=== PATIENT | female | born 2000 | race Caucasian/White ===

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

== ENCOUNTER 2024-01-18 14:35 | Emergency (ER) | payer SELFPAY ==
[2024-01-18 14:38] VITALS: BP 131/85; PULSE 93; TEMP 36.8; O2SAT 97
--- NOTE | 2024-01-18 15:34 | ED.GENADUL_ITS ---
Discharge Plan Disposition Patient Disposition: Home Condition: Good Discharge Details Chief Complaint: Orthopedic Clinical Impression: Pain of right fibula Primary Care Provider: Unknown,Unknown ED Provider: Bon Graham Home Meds and New Rx's Prescriptions: No Action norgestimate-ethinyl estradiol [Sprintec (28)] 0.25-35 mg-mcg tablet 1 tab PO DAILY Qty: 84 3RF Discharge Instructions Additional Instructions: At this time thankfully the x-ray does not show any evidence of fracture. As we discussed together I suspect that a component of your symptoms is likely secon steffany to the old injury and the disruption that it causes to the joint and the surrounding ligaments. In the meantime while you are having the pain please use the crutches to bear less weight on the foot for the next 2 weeks. If the pain is notably improving with the crutches and the walking boot you can gradually transition to just utilizing the walking boot. Once the pain is notably improved with a walking boot you can transition back to your shoes with potentially an [id number]-ydlqqli lace up ankle support device. Please take Tylenol and Motrin as needed for pain. You can also apply Voltaren gel/diclofenac gel which is azkn-zuq-[id number] to the affected area. This can also help improve the pain. We have placed a referral with av specialist. Keep an open mind for future treatment options, which will likely start with helpful physical therapy, and potential supportive devices. If you notice any worsening of your symptoms, or any new symptoms such as vomiting, diarrhea, fever, chills, shortness of breath, chest pain, numbness, weakness, or fainting , please return immediately to the emergency department for reevaluation. Please follow up with your primary care provider as soon as possible for reassessment and reevaluation. As always, it was a pleasure participating in your medical care today. Referrals: Dakota Armenta MD [ [facility] STAFF PHYSICIAN] - Ryan Clements MD [ [facility] STAFF PHYSICIAN] - [facility] General Date/Time Provider Initiated Documentation: 01/18/24 14:42 . [facility] Narrative: This is a pleasant 23-year-old female with a past medical history of PTSD, anxiety, depression, and a previous distal fibula injury for the right fibula on February 21, 2023, who presents today for right distal fibular pain. Patient states that she severely injured the distal fibula a year ago, and did not get surgery however there were discussions about surgery with her provider in [place] at that time. Eventually the pain diminished, and it got to the point where she could feel it, but it did not give regular pain. Over the last 2 months she has developed a worsening pain though. She has recently started a job at a bank, and the increased amount of weightbearing and movement has brought about significant sharp pains. The describes the pain is worse with weightbearing, but not at rest. She has been taking Advil to help improve the pain. She states that the pain is present at the lateral ankle, and has travele d slightly proximally over the last few weeks. She denies any new numbness and tingling. No other complaints at this time. Related Data Home Medications Medication Instructions Recorded Confirmed norgestimate 0.25 mg-ethinyl 1 tab PO DAILY #84 tabs 08/26/18 08/26/18 estradiol 35 mcg tablet (Sprintec (28)) Previous Rx's Medication Instructions Recorded norgestimate 0.25 mg-ethinyl 1 tab PO DAILY #84 tabs 08/26/18 estradiol 35 mcg tablet (Sprintec (28)) Allergies Allergy/AdvReac Type Severity Reaction Status Date / Time No Known Allergies Allergy Verified 08/26/18 10:23 General Stated Complaint: Orthopedic DIONE: 4 Review of Systems All systems reviewed & are unremarkable except as noted in HPI and below Exam Narrative Exam Narrative: 1.Const: Well-nourished, Well-developed, appearing stated age 2.Eyes: PERRL, no conjunctival injection, and symmetrical lids. 3.ENT: Atraumatic external nose and ears. Moist MM. Neck: Symmetric, trachea midline, No thyromegaly. 4.CVS: +S1/S2, No murmurs or gallops. Peripheral pulses 2+ and equal in all extremities. Brisk capillary refill in all extremities. 5.RESP: Unlabored respiratory effort. Clear to auscultation bilaterally. No wheezes rales or rhonchi 6.GI: Soft, Nontender/Nondistended, No hepatosplenomegaly. No guarding or rebound. 7.MSK: Normocephalic. Right lower extremity: Patient demonstrates very minimal tenderness at the distal fibula, no pain with palpation throughout the ankle, the mid or proximal fibula. No tibial pain. Brisk capillary refill is present, dorsalis pedis and posterior tibial pulse +2 bilaterally. Patient has moderate pain with weightbearing pressure applied to the ankle, moderate pain with inversion and eversion of the ankle. Minimal pain with flexion and extension at the ankle. 8.Skin: Warm, Dry. No rashes or lesions. 9.Neuro: rfid engineer II-XII grossly intact. Sensation grossly intact, no focal neurologic deficits. 10.Psych: (AAO) x3. Appropriate mood and affect Course Vital Signs Vital signs: Vital Signs Temperature 36.8 C 01/18/24 14:38 Pulse 93 H 01/18/24 14:38 Blood Pressure 131/85 01/18/24 14:38 Pulse Oximetry 97 01/18/24 14:38 Temperature 36.8 C 01/18/24 14:38 Temperature Source Temporal Artery Scan 01/18/24 14:38 Pulse 93 H 01/18/24 14:38 Respiratory Effort Normal 01/18/24 14:53 Blood Pressure 131/85 01/18/24 14:38 Blood Pressure Position Sitting 01/18/24 14:38 Pulse Oximetry 97 01/18/24 14:38 Oxygen Delivery Method Room Air 01/18/24 14:38 Oxygen Flow Rate 0 01/18/24 14:38 Medical Decision Making This is a pleasant 23-year-old female with a past medical history of PTSD, anxiety, depression, and a previous distal fibula injury for the right fibula on February 21, 2023, who presents today for right distal fibular pain. Patient states that she severely injured the distal fibula a year ago, and did not get surgery however there were discussions about surgery with her provider in [place] at that time. Eventually the pain diminished, and it got to the point where she could feel it, but it did not give regular pain. Over the last 2 months she has developed a worsening pain though. She has recently started a job at a bank, and the increased amount of weightbearing and movement has brought about significant sharp pains. The describes the pain is worse with weightbearing, but not at rest. She has been taking Advil to help improve the pain. She states that the pain is present at the lateral ankle, and has traveled slightly proximally over the last few weeks. She denies any new numbness and tingling. No other complaints at this time. Exam demonstrates a pleasant female, she is notably tearful though, and attributes that to her anxiety and PTSD. Palpation of the leg in general elicits an uncomfortable feeling which does elicit tears and crying, however she states that this is not actually pain, rather than just a sensation that she does not appreciate. However once we move past this, we are able to dif ferentiate between that and pain. Patient has minimal pain on palpation of the ankle and the distal fibula, however inversion and eversion and weightbearing elicits significant pain in that area that is reproducible on exam. No significant pitting edema. Normal neurovascular exam otherwise. I suspect there is a component of chronic arthritis from her previous injury, potential chronic ligamentous disruption, with also the potential for osseous degradation from the significance of the previous fracture from what she explains. We will get an x-ray to look for necrosis to bone, no fracture, will give a walking boot and crutches. Will monitor closely and reassess. 4:32 PM X-ray negative for acute process. I spent 30 minutes discussing the findings with the patient's, including the most appropriate next steps, which would likely include the continued use of crutches in the walking boot for the time being, as well as the potential need for NSAID therapy. We will place an orthopedic referral. I did also discuss with the patient that immediate surgery is probably not the best next option, and that the likely next best steps are physical therapy, potential orthotic devices, and continued close maintenance. Patient will follow closely with orthopedics. Discussed red flags which to return I have extensively reviewed the treatment plan and discharge instructions with the patient. I have addressed all patient concerns at this time. The patient was made aware of what symptoms to monitor for that would warrant a return to the emergency department. Discussed the plan with the patient, they demonstrate verbal understanding and agreement with our assessment and plan at this time. The documentation in this chart was dictated using [employer] dictation software. Please excuse any dictation errors. FINDINGS: BONES: There is a healed nondisplaced fracture of the distal right fibula. No new fracture is seen. No bony destructive lesion is seen. Visualized portion of knee and ankle joints are unremarkable. SOFT TISSUE: Normal. IMPRESSION: No new fracture or dislocation. Quality:SDOH Health Related Social Needs: No Data to Display PFSH All Active Problems (Updated 01/18/24 @ 16:31 by Bon Graham DO) Pain of right fibula (Acute) Adjustment disorder (Acute 09/17/12) 09/17/12--related to puberty changes- resolved and 01/28/13- mostly related to home situation and issues with mother Surgical History Tonsillectomy Family History Father Age: 45 No problems noted. Brother Age: 25 No problems noted. Brother Age: 15 No problems noted. Mother Age: 45 Substance abuse Social History Smoking/Tobacco Use Status: Never Smoking risk assessment performed?: Yes Alcohol Intake: never Female Reproductive History Menstrual control method: pills History History 0 Para Hx # Term Pregnancies Multiple births Hx # Pregnancies Ectopic pregnancies AB induced Hx Number of Living Children AB spontaneous
--- NOTE | 2024-01-18 15:35 | DI.RAD_ITS ---
Exam(s) XR TIB/FIB RT EXAM: XR TIB/FIB RT CLINICAL HISTORY: recent distal fib fx, new pain at distal fib. TECHNIQUE: 2D digital imaging was performed of the right tibia and fibula. Two images were obtained. AP and lateral views were obtained. COMPARISON: No exams were available for comparison FINDINGS: BONES: There is a healed nondisplaced fracture of the distal right fibula. No new fracture is seen. No bony destructive lesion is seen. Visualized portion of knee and ankle joints are unremarkable. SOFT TISSUE: Normal. IMPRESSION: No new fracture or dislocation. DATA REPOSITORY: RADIATION DOSE DELIVERED:
== END 2024-01-18 16:45 | disposition home or self-care (01) ==
PROVIDERS: Emergency Provider Student in an Organized Health Care Education/Training Program
DX: M89.8X6 Other specified disorders of bone, lower leg; S82.831D Other fracture of upper and lower end of right fibula, subsequent encounter for closed fracture with routine healing
CPT/HCPCS: 99283; 73590

== ENCOUNTER 2025-01-06 14:50 | Emergency (ER) | payer SELFPAY ==
[2025-01-06 15:01] VITALS: BP 109/76; PULSE 66; RESP 16; TEMP 36.5; O2SAT 98
--- NOTE | 2025-01-06 15:08 | W.ED.GENAD ---
Discharge Plan Disposition Patient Disposition: Home Discharge Details Clinical Impression: Tendonitis Primary Care Provider: None,None ED Provider: Feli Robles Home Meds and New Rx's Prescriptions: No Action norgestimate-ethinyl estradiol [Sprintec (28)] 0.25-35 mg-mcg tablet 1 tab PO DAILY Qty: 84 3RF buspirone 15 mg tablet 15 mg PO TID escitalopram oxalate 20 mg tablet 20 mg PO DAILY Discharge Instructions Instructions: Tendinopathy (DC) Additional Instructions: A referral has been placed for you to establish care with primary care. Care management will call you to set up your first appointment. Please use the sling as needed for comfort. Ice for 15 to 20 minutes at a time will help with swelling. I recommend ibuprofen 600 mg every 8 hours for discomfort. Return to emergency care if you develop fevers over 100.4, redness and warmth to the to the elbow, numbness to the arm, Stand Alone Forms: Work Release Referrals: Care Management [Provider Group] [facility] General Date/Time Provider Initiated Documentation: 01/06/25 15:03. HPI Narrative: Cristela is a 24 year old female who presents to the emergency department today for evaluation of swelling to R inner forearm. She reports that she just noticed it this morning, it is tender to palpation. Causes discomfort if she walks with arms fully extended. No distal numbness/tingling. She does feel like her discomfort moves up and down the arm. No known trauma, associated fever/chills, general malaise, or associated rash/lesions. She is right-handed, types a lot for work. No significant past medical history. Physical exam reassuring. Mild swelling noted to ulnar aspect of right forearm. No associated redness, joint swelling, or rashes. Full range of motion, including supination/pronation, flexion and extension. Distal pulses intact. No color change to the extremity. Radial tenderness with palpation, especially over proximal ulna. D/dx includes but is not limited to: Lipoma, tendinitis. Abscess or cellulitis unlikely. I independently interpreted the following tests: POCUS performed with Dr. Barreto. Tendinitis noted, otherwise unremarkable. While in the emergency department, Cristela received ibuprofen for discomfort, as well as a sling. Reviewed discharge instructions for tendinitis with patient, including symptomatic management and red flags indicating need for return to emergency care. She does not currently have a PCP, referral was placed to care management to establish care. Related Data Home Medications ?Medication ?Instructions ?Recorded ?Confirmed norgestimate 0.25 mg-ethinyl 1 tab PO DAILY #84 tabs 08/26/18 01/06/25 estradiol 35 mcg tablet (Sprintec (28)) buspirone 15 mg tablet 15 mg PO TID 01/06/25 01/06/25 escitalopram oxalate 20 mg tablet 20 mg PO DAILY 01/06/25 01/06/25 Previous Rx's ?Medication ?Instructions ?Recorded norgestimate 0.25 mg-ethinyl 1 tab PO DAILY #84 tabs 08/26/18 estradiol 35 mcg tablet (Sprintec (28)) Allergies Allergy/AdvReac Type Severity Reaction Status Date / Time No Known Allergies Allergy Verified 01/06/25 15:05 General Stated Complaint: Orthopedic DIONE: 4 Review of Systems Narrative: See HPI Exam Const General: cooperative, healthy appearing, comfortable, no acute distress, well developed and anxious Nutritional Appearance: average body habitus Orientation: alert Resp Effort & Inspection: normal respiratory effort and able to speak in complete sentences Skin General skin exam: no rashes or lesions noted Trauma: no lacerations or abrasions Neuro General: patient alert, patient oriented x3, tone normal, moves all extremities and no focal motor deficits Cognition: normal cognition Sensory Exam: no sensory deficits noted Extrem Right upper extremity: no joint enlargement and elbow/forearm Details: tenderness, swelling (mild swelling along proximal ulnar aspect of forearm), normal ROM and distal pulses intact; no unusual warmth, no abrasions, no lacerations, no ecchymosis, no crepitus, no foreign bodies, no penetrating wound and no deformity; no edema Course Vital Signs Vital signs: Vital Signs Temperature 36.5 C 01/06/25 15:01 Pulse 66 01/06/25 15:01 Respiratory Rate 16 01/06/25 15:01 Blood Pressure 109/76 01/06/25 15:01 Pulse Oximetry 98 01/06/25 15:01 Temperature 36.5 C 01/06/25 15:01 Pulse 66 01/06/25 15:01 Respiratory Rate 16 01/06/25 15:01 Blood Pressure 109/76 01/06/25 15:01 Pulse Oximetry 98 02/25/25 15:01 Procedure Abscess Drainage Provider that performed the procedure: Selwyn Barreto Medical Decision Making Quality:SDOH Health Related Social Needs: No Data to Display PFSH All Active Problems (Updated 01/06/25 @ 16:10 by Feli Hunter) Tendonitis (Acute) Adjustment disorder (Acute 09/17/12) 09/17/12--related to puberty changes- resolved and 01/28/13- mostly related to home situation and issues with mother Surgical History Tonsillectomy Family History Father Age: 46 No problems noted. Brother Age: 26 No problems noted. Brother Age: 16 No problems noted. Mother Age: 46 Substance abuse Social History Smoking/Tobacco Use Status: Never Smoking risk assessment performed?: Yes Alcohol Intake: current Alcohol Intake frequency: holidays/special occasions only Drug use: Daily Substance use type: marijuana Do you feel safe at home: Yes Do you feel safe in your relationship?: Yes Female Reproductive History Menstrual control method: pills History History 0 Para Hx # Term Pregnancies Multiple births Hx # Pregnancies Ectopic pregnancies AB induced Hx Number of Living Children AB spontaneous POCUS Exam (ED) Limited Soft Tissue Exam DATE OF EXAM: 01/06/25 TIME OF EXAM: 03:55 PROVIDER THAT PERFORMED THE STUDY: Selwyn Barreto IS THIS A REPEAT EXAM DURING THIS ENCOUNTER: No LOCATION OF EXAM: Upper extremity/right REASON FOR EXAM: Pain and Swelling VISUALIZED STRUCTURES: Fascia, Muscle, Skin, Subcutaneous tissue and Other (bone) structure: tendon PERTINENT FINDINGS/IMPRESSION: No apparent abnormalities and Other (tendonitis) impression: tendonitis . Exam Complete Pocus Exam Limited Soft Tissue Exam DATE OF EXAM: 01/06/25 TIME OF EXAM: 03:55 PROVIDER THAT PERFORMED THE STUDY: Selwyn Barreto IS THIS A REPEAT EXAM DURING THIS ENCOUNTER: No LOCATION OF EXAM: Upper extremity/right REASON FOR EXAM: Pain and Swelling VISUALIZED STRUCTURES: Fascia, Muscle, Skin, Subcutaneous tissue and Other (bone) structure: tendon PERTINENT FINDINGS/
[2025-01-06 16:20] VITALS: BP 120/82; PULSE 80; O2SAT 98
[2025-01-06] MEDS: Ibuprofen 600 MG TAB PO (16:20)
== END 2025-01-06 16:23 | disposition home or self-care (01) ==
PROVIDERS: Emergency Provider Nurse Practitioner Family
DX: M79.631 Pain in right forearm (principal); M77.9 Enthesopathy, unspecified
CPT/HCPCS: 76882; 99284; 99283

== ENCOUNTER 2025-06-16 10:14 | Emergency (ER) | payer OTHER, SELFPAY ==
[2025-06-16 10:31] VITALS: BP 93/60; PULSE 83; RESP 16; TEMP 36.8; O2SAT 96
--- NOTE | 2025-06-16 10:37 | W.ED.GENAD ---
Discharge Plan Disposition Patient Disposition: Home Condition: Stable Discharge Details Clinical Impression: Cat scratch of face Primary Care Provider: Crissy Kaye ED Provider: Earlene Talbot Home Meds and New Rx's Prescriptions: No Action norgestimate-ethinyl estradiol [Sprintec (28)] 0.25-35 mg-mcg tablet 1 tab PO DAILY Qty: 84 3RF buspirone 15 mg tablet 15 mg PO TID escitalopram oxalate 20 mg tablet 20 mg PO DAILY Discharge Instructions Instructions: Abrasions ED Discharge Data Discharge Physician: Earlene Talbot [facility] General Date/Time Provider Initiated Documentation: 06/16/25 10:17. HPI Narrative: 24-year-old female presents for evaluation after cat scratch. She state her cat scratched her left upper eyelid this morning. She is worried that she may need a tetanus shot. There is no significant swelling or warmth. Is a very superficial abrasion to her right upper eyelid. Related Data Home Medications ?Medication ?Instructions ?Recorded ?Confirmed norgestimate 0.25 mg-ethinyl 1 tab PO DAILY #84 tabs 08/26/18 06/16/25 estradiol 0.035 mg tablet (Sprintec (28)) buspirone 15 mg tablet 15 mg PO TID 01/06/25 06/16/25 escitalopram oxalate 20 mg tablet 20 mg PO DAILY 01/06/25 06/16/25 Previous Rx's ?Medication ?Instructions ?Recorded norgestimate 0.25 mg-ethinyl 1 tab PO DAILY #84 tabs 08/26/18 estradiol 0.035 mg tablet (Sprintec (28)) Allergies Allergy/AdvReac Type Severity Reaction Status Date / Time cat dander Allergy Mild Hives Verified 06/16/25 10:37 shellfish derived AdvReac Severe Anaphylaxis Verified 06/16/25 10:37 General Stated Complaint: Laceration DIONE: 4 Review of Systems Narrative: Remainder of review of systems otherwise negative except for as noted in the HPI x 5. Exam Narrative Exam Narrative: General: non-toxic, no respiratory distress, comfortable HEENT: normocephalic, atraumatic, small abrasion to right upper eyelid without any surrounding erythema or warmth, otherwise lids and lashes normal, PERRL, EOMI, anicteric sclera, no conjunctival injection, moist oral mucosa Musculoskeletal: full range of motion of arms and legs, no tenderness to palpation. no clubbing, cyanosis, or edema Neurologic: appropriate for age, strength normal Psych: alert and oriented Skin: As above, otherwise no petechiae, no lesions, warm and dry Course Vital Signs Vital signs: Vital Signs Temperature 36.8 C 06/16/25 10:31 Pulse 83 06/16/25 10:31 Respiratory Rate 16 06/16/25 10:31 Blood Pressure 93/60 L 06/16/25 10:31 Pulse Oximetry 96 06/16/25 10:31 Temperature 36.8 C 06/16/25 10:31 Temperature Source Oral 06/16/25 10:31 Pulse 83 06/16/25 10:31 Respiratory Rate 16 06/16/25 10:31 Blood Pressure 93/60 L 06/16/25 10:31 Pulse Oximetry 96 06/16/25 10:31 Oxygen Delivery Method Room Air 06/16/25 10:31 Oxygen Flow Rate 0 06/16/25 10:31 Medical Decision Making 24-year-old female presents for evaluation of cat scratch to right upper eyelid. Patient has very superficial abrasion. We discussed wound care. Her tetanus is already up-to-date. Do not feel that she requires further medication or intervention at this time. She does understand indications to return. PFSH All Active Problems Cat scratch of face (Acute) Adjustment disorder (Acute 09/17/12) 09/17/12--related to puberty changes- resolved and 01/28/13- mostly related to home situation and issues with mother Surgical History Tonsillectomy Family History Father Age: 47 No problems noted. Brother Age: 26 No problems noted. Brother Age: 16 No problems noted. Mother Age: 46 Substance abuse Social History Smoking/Tobacco Use Status: Never Smoking risk assessment performed?: Yes Alcohol Intake: current Alcohol Intake frequency: holidays/special occasions only Drug use: Daily Substance use type: marijuana Do you feel safe at home: Yes Do you feel safe in your relationship?: Yes Female Reproductive History Menstrual control method: pills History History 0 Para Hx # Term Pregnancies Multiple births Hx # Pregnancies Ectopic pregnancies AB induced Hx Number of Living Children AB spontaneous
== END 2025-06-16 10:42 | disposition home or self-care (01) ==
PROVIDERS: Emergency Provider Emergency Medicine Emergency Medical Services; PCP Nurse Practitioner Family
DX: S00.211A Abrasion of right eyelid and periocular area, initial encounter (principal); W55.03XA Scratched by cat, initial encounter; Y93.89 Activity, other specified; Y92.018 Other place in single-family (private) house as the place of occurrence of the external cause
CPT/HCPCS: 99283

== ENCOUNTER 2025-07-08 15:35 | Outpatient (REF) | payer OTHER, SELFPAY ==
[2025-07-08 14:26] LABS: Abs Immature Grans 0.02 10^3/uL (0.0-0.06); HCT 41.0 % (36.0-46.0); HGB 14.4 g/dL (11.2-15.7); Immature Grans % 0.3 %; MCH 32.1 pg (27.0-33.0); MCHC 35.1 % (32.0-36.0); MCV 91 fL (80-95); MPV 10.3 fL (8.0-11.0); Platelet Count 297 10^3/uL (130-400); RBC 4.49 10^6/uL (3.93-5.22); RDW 11.9 % (11.7-14.6); RDW-SD 39.8 fL; WBC 7.87 10^3/uL (4.4-10.8)
[2025-07-08 14:44] LABS: ALT 20 U/L (14-59); AST 14 U/L (15-37); Albumin 3.8 g/dL (3.4-5.0); Alkaline Phosphatase 108 U/L (46-116); Anion Gap 9.7 mmol/L (3-11); BUN 6 mg/dL (7-18); Bilirubin, Total 0.4 mg/dL (0.2-1.0); CO2 25.3 mmol/L (21.0-32.0); Calcium 9.0 mg/dL (8.5-10.1); Chloride 106 mmol/L (98-107); Estimated GFR 127.67 (mL/min/1.73m2); Glucose 89 mg/dL (74-106); Lipase 29 U/L (<78); Potassium 3.8 mmol/L (3.5-5.1); Sodium 141 mmol/L (136-145); Total Protein 6.9 g/dL (6.4-8.2)
== END 2025-07-08 15:36 | disposition home or self-care (01) ==
LOC: LBN 15:35
PROVIDERS: PCP Nurse Practitioner Family; Visit Provider Physician Assistant Medical
DX: R10.11 Right upper quadrant pain (principal)
CPT/HCPCS: 80053; 83690; 85025